=== PATIENT | male | born 1960 | race Caucasian/White ===

== ENCOUNTER 2017-11-01 16:11 | Emergency (ER) | payer SELFPAY ==
[2017-11-01] MEDS ORDERED: Piperacillin/Tazobac ADVAN(*) 3.375 GM in NS 0.9% 100 ML* 100 ML IVPB ONE (16:40)
[2017-11-01] MEDS: NS 0.9% 1000 ML*IV.FLUID IV ONE ×3 (16:55→18:18)
[2017-11-01] MEDS ORDERED: Vancomycin(*) 1,000 MG - ED ONCE IVPB ONE ×2 (17:00)
[2017-11-01] MEDS ORDERED: Vancomycin(*) 1,000 MG VIAL IVPB SCH (17:00)
[2017-11-01 17:14] LABS: Comments Flag Yes; Hematocrit 27 % (42-52); Hemoglobin 8.9 g/dl (14.0-18.0); Mean Corpuscular HGB Conc 33 g/dl (31-36); Mean Corpuscular Hemoglobin 33 pg (27-31); Mean Corpuscular Volume 102 fL (80-94); Mean Platelet Volume 8 um3 (7.4-10.4); Red Blood Count 2.69 10^6/ul (4.0-5.4); Red Cell Distribution Width 15 % (10.5-15); White Blood Count 16.3 10^3/ul (3.5-10.8)
[2017-11-01 17:15] LABS: Add Diff/Slide Review? Slide Review Added; Albumin 1.9 g/dL (3.2-5.2); BUN/Creatinine Ratio 22.2 (8-20); C Reactive Protein 91.17 mg/L (< 5.00); Calcium 8.2 mg/dL (8.6-10.3); EGFR Non-African American 21.7 (>60); Globulin 4.1 g/dL (2-4); Total Bilirubin 2.5 mg/dL (0.2-1.0)
--- NOTE | 2017-11-01 17:18 | RAD ---
Indication: Shortness of breath. 2 views of the chest are reviewed. No mediastinal shift is noted. Heart is of normal size and configuration. Lung reeves are clear. When compared to previous exam of December 28, 2004 no significant change is noted. IMPRESSION: NO ACTIVE CARDIOPULMONARY DISEASE IS NOTED.
[2017-11-01 17:25] LABS: Potassium 5.2 mmol/L (3.5-5.0); Troponin I 0.05 ng/mL (<0.04)
[2017-11-01] MEDS ORDERED: Calcium Gluconate INJ* 1 GM in NS 0.9% 100 ML* 100 ML IVPB ONE (17:33)
[2017-11-01] MEDS ORDERED: Insulin REGULAR(*) 1 UNITS UNIT IV PUSH ONE (17:33)
[2017-11-01] MEDS ORDERED: Dextrose 50% Syringe 50 ML* 25 GM/50 ML SYRINGE IV PUSH ONE (17:33)
[2017-11-01] MEDS ORDERED: NS 0.9% 100 ML* 100 ML ONE (17:52)
[2017-11-01 17:59] LABS: Eosinophils % 1 % (0-6); Immature Granulocytes 49 % (0-9); Metamyelocytes % 4 % (0-2); Neutrophil % 34 % (38-83)
[2017-11-01 18:00] LABS: Add Path Review? YES; Macrocytosis 1+; Polychromasia 1+; Toxic Granulation 2+
[2017-11-01] MEDS ORDERED: Midazolam* 1 MG/ML 10 ML VIAL (10 MG) ONE (18:02)
[2017-11-01] MEDS ORDERED: Succinylcholine* 20 MG/ML 10 ML VIAL ONE (18:02)
[2017-11-01 18:19] LABS: PCO2 Arterial 26 mmHg (35-45)
[2017-11-01] MEDS ORDERED: Sodium Bicarbonate 8.4%* 50 ML SYRINGE IV ONE ×2 (18:31→19:17)
--- NOTE | 2017-11-01 18:32 | RAD ---
Indication: Right leg swelling and devascularization. CT of the right lower extremity was obtained without IV contrast. There is subcutaneous edema noted in the lateral aspect of the right hip. The subcutaneous edema is in the dependent portion with skin thickening. There is fluid extending up to the fascia. No evidence of air is noted. No intramuscular fluid is noted. The intramuscular layers are intact. No drainable fluid collections are noted. No gross thickening is noted. IMPRESSION: There is absence of air in the fascial layer however this does not exclude necrotizing fasciitis. There is diffuse subcutaneous edema and fluid without evidence of focal fluid collections. These findings are nonspecific.
[2017-11-01] MEDS ORDERED: Clindamycin 900 MG IVPREMIX(* 900 MG/50 ML SDV IV ONE (18:36)
[2017-11-01] MEDS ORDERED: Norepinephrine 16MCG/ML IVPRE* 4,000 MCG/250 ML BAG IV ONE ×2 (18:40→20:38)
--- NOTE | 2017-11-01 18:45 | RAD ---
Indication: Left lower extremity pain and swelling. CT of the left lower extremity was performed in the axial plane. Sagittal and coronal reconstructed images were obtained. Diffuse circumferential subcutaneous edema noted throughout the left lower extremity. No evidence of fascial air is noted however. No evidence of abnormal fluid collections are noted. No evidence of infiltration of fat is noted in the intramuscular leg numbness. IMPRESSION: Nonspecific subcutaneous edema throughout the lower extremity most prominent in the dependent portions.
[2017-11-01 18:50] LABS: Erythrocyte Sed Rate 64 mm/Hr (0-20)
[2017-11-01] MEDS ORDERED: Hydrocortisone INJ* 100 MG VIAL IV ONE (19:03)
[2017-11-01 19:04] VITALS: BP 111/57
[2017-11-01 19:04] LABS: Magnesium 1.9 mg/dL (1.9-2.7)
[2017-11-01] MEDS ORDERED: Hydrocortisone INJ* 100 MG VIAL ONE (19:06)
[2017-11-01] MEDS: NS 0.9% 1000 ML* 1,000 ML IV ONE ×2 (19:18→19:19)
--- NOTE | 2017-11-01 19:19 | RAD ---
Indication: Respiratory failure. Single frontal view of the chest performed at 1856 hours was reviewed. Comparison is made with previous exam dated earlier the same day. Cardiomegaly is noted. Mild vascular congestion is noted. ET tube is just above the joi. No alveolar consolidation is noted. IMPRESSION: ET TUBE IN APPROPRIATE LOCATION.
[2017-11-01] MEDS ORDERED: Succinylcholine* 20 MG/ML 10 ML VIAL IV ONE (19:25)
[2017-11-01] MEDS ORDERED: DOPamine 200 MG/250 ML IVPREM* 200 MG/250 ML ML IV ONE (19:31)
[2017-11-01] MEDS ORDERED: Midazolam* 1 MG/ML 10 ML VIAL (10 MG) IV ONE (19:40)
[2017-11-01] MEDS ORDERED: Etomidate* 2 MG/ML 10 ML VIAL IV ONE (19:43)
--- NOTE | 2017-11-01 19:57 | ED ---
Chris Sauceda Angela, scribed for Herman Moncada MD on 11/01/17 at 1727 . Sepsis HPI - HPI Summary HPI Summary: This pt is a 56 y/o male presenting to [facility] via EMS c/o bilateral leg wound weeping x2 weeks. Pt reports he went to [address] [place] [address] Urgent Care for SOB and low back pain. EMS was called for sores on bilateral legs. Pt additionally c/o bilateral leg pain for weeks. He states he was not able to come to the ED before as he was busy. 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 Pt notes he is not taking any medications. He states he sees a PCP every couple of years. Pt denies tobacco, drug, and alcohol use. - History of Current Complaint Chief Complaint: EDShortnessOfBreath Time Seen by Provider: 11/01/17 16:18 Stated Complaint: SOB Hx Obtained From: Patient Onset/Duration: Started Weeks Ago Timing: Constant, Lasting Weeks Pain Intensity: 4 Pain Scale Used: 0-10 Numeric Associated Signs & Symptoms: SOB, Other - low back pain, LE weeping sores - Allergy/Home Medications Allergies/Adverse Reactions: Allergies Allergy/AdvReac Type Severity Reaction Status Date / Time No Known Allergies Allergy Verified 11/01/17 16:43 PMH/Surg Hx/FS Hx/Imm Hx Endocrine/Hematology History: Denies: Hx Diabetes Cardiovascular History: Denies: Hx Congestive Heart Failure, Hx Hypertension Infectious Disease History: No Infectious Disease History: Denies: Traveled Outside the [place] in Last 30 Days - Family History Known Family History: Positive: Unknown - pt is a critical pt - Social History Alcohol Use: None Substance Use Type: Reports: None Smoking Status (MU): Never Smoked Tobacco Review of Systems Negative: Fever, Chills Eyes: Negative ENT: Negative Positive: Shortness Of Breath Musculoskeletal: Other - low back pain Skin: Other - sore on bilateral legs, weeping from bilateral legs. Neurological: Negative All Other Systems Reviewed And Are Negative: Yes Physical Exam - Summary Physical Exam Summary: VITAL SIGNS: Reviewed. GENERAL: Patient is a well-developed male. Pt is a little jaundice. HEAD AND FACE: No signs of trauma. No ecchymosis, hematomas or skull depressions. No sinus tenderness. EYES: PERRLA, EOMI x 2, No injected conjunctiva, no nystagmus. EARS: Hearing grossly intact. Ear canals and tympanic membranes are within normal limits. MOUTH: Oropharynx within normal limits. NECK: Supple, trachea is midline, no adenopathy, no JVD, no carotid bruit, no c- spine tenderness, neck with full ROM. CHEST: Symmetric, no tenderness at palpation LUNGS: Clear to auscultation bilaterally. No wheezing or crackles. CVS: Regular rate and rhythm, S1 and S2 present, no murmurs or gallops appreciated. ABDOMEN: Soft, non-tender. No signs of distention. No rebound no guarding, and no masses palpated. Bowel sounds are normal. EXTREMITIES: FROM in all major joints, no cyanosis or clubbing. Pt has lower extremity edema bilaterally. There is a necrotic wound in the right calf. There are faint pulses of bilateral lower extremities. Foul odor probably secondary to necrosis. NEURO: Alert and oriented x 3. No acute neurological deficits. Speech is normal and follows commands. SKIN: Dry and warm. Desquamation of the skin on bilateral lower extremities. Triage Information Reviewed: Yes Vital Signs On Initial Exam: Initial Vitals Temp Pulse Resp BP Pulse Ox 95.7 F 73 16 112/49 96 11/01/17 16:15 11/01/17 16:15 11/01/17 16:15 11/01/17 16:15 11/01/17 16:15 Vital Signs Reviewed: Yes Procedures - Procedure Summary Procedure Summary: Procedure - Endotracheal Intubation Permit was implied secondary to emergent situation. An LMA and bougie were placed within arm's reach. A Glidescope blade ~was inserted into the oropharynx at which time the vocal cords were visualized. A 7.5 Iraqi endotracheal tube was inserted and visualized going through the vocal cords. The stylette was removed. Colorimetric change was visualized on the CO2 meter. Breath sounds were heard in both lung reeves equally. The endotracheal tube was placed at 23 cm, measured at the teeth. Portable chest x-ray ordered for confirmation of tube level. Post intubation sedation ordered. Intubation was made at the first attempt. No complications were encountered. Diagnostics - Vital Signs Vital Signs Temp Pulse Resp BP Pulse Ox 11/01/17 16:15 95.7 F 73 16 112/49 96 - Laboratory Lab Results: Lab Results 11/01/17 11/01/17 11/01/17 Range/Units 16:44 16:44 16:44 WBC 16.3 H (3.5-10.8) 10^3/ul RBC 2.69 L (4.0-5.4) 10^6/ul Hgb 8.9 L (14.0-18.0) g/dl Hct 27 L (42-52) % MCV 102 H (80-94) fL MCH 33 H (27-31) pg MCHC 33 (31-36) g/dl RDW 15 (10.5-15) % Plt Count 175 (150-450) 10^3/ul MPV 8 (7.4-10.4) um3 Immature Gran % (Auto) 49 H (0-9) % Neut % (Auto) 89.7 H (38-83) % Lymph % (Auto) 7.8 L (25-47) % Island % (Auto) 0.5 L (1-9) % Eos % (Auto) 1.5 (0-6) % Baso % (Auto) 0.5 (0-2) % Absolute Neuts (auto) 14.6 H (1.5-7.7) 10^3/ul Absolute Lymphs (auto) 1.3 (1.0-4.8) 10^3/ul Absolute Monos (auto) 0.1 (0-0.8) 10^3/ul Absolute Eos (auto) 0.2 (0-0.6) 10^3/ul Absolute Basos (auto) 0.1 (0-0.2) 10^3/ul Absolute Nucleated RBC 0.09 10^3/ul Neutrophils % 34 L (38-83) % Band Neutrophils % 45 H (0-8) % Lymphocytes % 12 L (25-47) % Monocytes % 3 (0-13) % Eosinophils % 1 (0-6) % Basophils % 1 (0-2) % Metamyelocytes % 4 H (0-2) % Nucleated RBC % 0.6 Toxic Granulation 2+ Normal RBC Morphology Not Reportable Polychromasia 1+ Macrocytosis 1+ ESR 64 H (0-20) mm/Hr Hem Pathologist Commnt Pending INR (Anticoag Therapy) 2.25 H (0.77-1.02) APTT 43.1 H (26.0-36.3) seconds Fibrinogen 195 (110.8-404.3) mg/dL ABG pH (7.35-7.45) ABG pCO2 (35-45) mmHg ABG pO2 (80-100) mmHg ABG HCO3 (19-31) mmol/L ABG O2 Saturation (95-98) % ABG Base Excess (-2.0-2.0) Sodium 122 L (133-145) mmol/L Potassium 5.2 H (3.5-5.0) mmol/L Chloride 95 L (101-111) mmol/L Carbon Dioxide 8 L* (22-32) mmol/L Anion Gap 19 H (2-11) mmol/L BUN 67 H (6-24) mg/dL Creatinine 3.02 H (0.67-1.17) mg/dL Est GFR ( Amer) 28.0 (>60) Est GFR (Non-Af Amer) 21.7 (>60) BUN/Creatinine Ratio 22.2 H (8-20) Glucose 56 L (70-100) mg/dL Lactic Acid (0.5-2.0) mmol/L Calcium 8.2 L (8.6-10.3) mg/dL Magnesium 1.9 (1.9-2.7) mg/dL Total Bilirubin 2.50 H (0.2-1.0) mg/dL AST 210 H (13-39) U/L ALT 63 H (7-52) U/L Alkaline Phosphatase 224 H (34-104) U/L Total Creatine Kinase 356 H (10-223) U/L Troponin I 0.05 H* (<0.04) ng/mL C-Reactive Protein 91.17 H (< 5.00) mg/L B-Natriuretic Peptide ( - 100) pg/mL Total Protein 6.0 L (6.4-8.9) g/dL Albumin 1.9 L (3.2-5.2) g/dL Globulin 4.1 H (2-4) g/dL Albumin/Globulin Ratio 0.5 L (1-3) Procalcitonin (<0.6) ng/mL Influenza A (Rapid) (Negative) Influenza B (Rapid) (Negative) 11/01/17 11/01/17 11/01/17 Range/Units 16:44 16:44 16:44 WBC (3.5-10.8) 10^3/ul RBC (4.0-5.4) 10^6/ul Hgb (14.0-18.0) g/dl Hct (42-52) % MCV (80-94) fL MCH (27-31) pg MCHC (31-36) g/dl RDW (10.5-15) % Plt Count (150-450) 10^3/ul MPV (7.4-10.4) um3 Immature Gran % (Auto) (0-9) % Neut % (Auto) (38-83) % Lymph % (Auto) (25-47) % Island % (Auto) (1-9) % Eos % (Auto) (0-6) % Baso % (Auto) (0-2) % Absolute Neuts (auto) (1.5-7.7) 10^3/ul Absolute Lymphs (auto) (1.0-4.8) 10^3/ul Absolute Monos (auto) (0-0.8) 10^3/ul Absolute Eos (auto) (0-0.6) 10^3/ul Absolute Basos (auto) (0-0.2) 10^3/ul Absolute Nucleated RBC 10^3/ul Neutrophils % (38-83) % Band Neutrophils % (0-8) % Lymphocytes % (25-47) % Monocytes % (0-13) % Eosinophils % (0-6) % Basophils % (0-2) % Metamyelocytes % (0-2) % Nucleated RBC % Toxic Granulation Normal RBC Morphology Polychromasia Macrocytosis ESR (0-20) mm/Hr Hem Pathologist Commnt INR (Anticoag Therapy) (0.77-1.02) APTT (26.0-36.3) seconds Fibrinogen (110.8-404.3) mg/dL ABG pH (7.35-7.45) ABG pCO2 (35-45) mmHg ABG pO2 (80-100) mmHg ABG HCO3 (19-31) mmol/L ABG O2 Saturation (95-98) % ABG Base Excess (-2.0-2.0) Sodium (133-145) mmol/L Potassium (3.5-5.0) mmol/L Chloride (101-111) mmol/L Carbon Dioxide (22-32) mmol/L Anion Gap (2-11) mmol/L BUN (6-24) mg/dL Creatinine (0.67-1.17) mg/dL Est GFR ( Amer) (>60) Est GFR (Non-Af Amer) (>60) BUN/Creatinine Ratio (8-20) Glucose (70-100) mg/dL Lactic Acid 9.9 H* (0.5-2.0) mmol/L Calcium (8.6-10.3) mg/dL Magnesium (1.9-2.7) mg/dL Total Bilirubin (0.2-1.0) mg/dL AST (13-39) U/L ALT (7-52) U/L Alkaline Phosphatase (34-104) U/L Total Creatine Kinase (10-223) U/L Troponin I (<0.04) ng/mL C-Reactive Protein (< 5.00) mg/L B-Natriuretic Peptide 381 H ( - 100) pg/mL Total Protein (6.4-8.9) g/dL Albumin (3.2-5.2) g/dL Globulin (2-4) g/dL Albumin/Globulin Ratio (1-3) Procalcitonin 3.0 H (<0.6) ng/mL Influenza A (Rapid) (Negative) Influenza B (Rapid) (Negative) 11/01/17 11/01/17 Range/Units 17:32 18:05 WBC (3.5-10.8) 10^3/ul RBC (4.0-5.4) 10^6/ul Hgb (14.0-18.0) g/dl Hct (42-52) % MCV (80-94) fL MCH (27-31) pg MCHC (31-36) g/dl RDW (10.5-15) % Plt Count (150-450) 10^3/ul MPV (7.4-10.4) um3 Immature Gran % (Auto) (0-9) % Neut % (Auto) (38-83) % Lymph % (Auto) (25-47) % Island % (Auto) (1-9) % Eos % (Auto) (0-6) % Baso % (Auto) (0-2) % Absolute Neuts (auto) (1.5-7.7) 10^3/ul Absolute Lymphs (auto) (1.0-4.8) 10^3/ul Absolute Monos (auto) (0-0.8) 10^3/ul Absolute Eos (auto) (0-0.6) 10^3/ul Absolute Basos (auto) (0-0.2) 10^3/ul Absolute Nucleated RBC 10^3/ul Neutrophils % (38-83) % Band Neutrophils % (0-8) % Lymphocytes % (25-47) % Monocytes % (0-13) % Eosinophils % (0-6) % Basophils % (0-2) % Metamyelocytes % (0-2) % Nucleated RBC % Toxic Granulation Normal RBC Morphology Polychromasia Macrocytosis ESR (0-20) mm/Hr Hem Pathologist Commnt INR (Anticoag Therapy) (0.77-1.02) APTT (26.0-36.3) seconds Fibrinogen (110.8-404.3) mg/dL ABG pH 7.01 L* (7.35-7.45) ABG pCO2 26 L (35-45) mmHg ABG pO2 103 H (80-100) mmHg ABG HCO3 7.1 L* (19-31) mmol/L ABG O2 Saturation 97.4 (95-98) % ABG Base Excess -22.8 L (-2.0-2.0) Sodium (133-145) mmol/L Potassium (3.5-5.0) mmol/L Chloride (101-111) mmol/L Carbon Dioxide (22-32) mmol/L Anion Gap (2-11) mmol/L BUN (6-24) mg/dL Creatinine (0.67-1.17) mg/dL Est GFR ( Amer) (>60) Est GFR (Non-Af Amer) (>60) BUN/Creatinine Ratio (8-20) Glucose (70-100) mg/dL Lactic Acid (0.5-2.0) mmol/L Calcium (8.6-10.3) mg/dL Magnesium (1.9-2.7) mg/dL Total Bilirubin (0.2-1.0) mg/dL AST (13-39) U/L ALT (7-52) U/L Alkaline Phosphatase (34-104) U/L Total Creatine Kinase (10-223) U/L Troponin I (<0.04) ng/mL C-Reactive Protein (< 5.00) mg/L B-Natriuretic Peptide ( - 100) pg/mL Total Protein (6.4-8.9) g/dL Albumin (3.2-5.2) g/dL Globulin (2-4) g/dL Albumin/Globulin Ratio (1-3) Procalcitonin (<0.6) ng/mL Influenza A (Rapid) Negative (Negative) Influenza B (Rapid) Negative (Negative) Result Diagrams: 11/01/17 16:44 11/01/17 16:44 Lab Statement: Any lab studies that have been ordered have been reviewed, and results considered in the medical decision making process. - Radiology Chest XR Xray Interpretation: No Acute Changes - IMPRESSION: No active cardiopulmonary disease is noted. ED physician has reviewed this radiology report and agrees. Radiology Interpretation Completed By: Radiologist Chest XR 2 Xray Interpretation: Positive (See Comments) - IMPRESSION: ET tube in appropriate location. ED physician has reviewed this radiology report and agrees. Radiology Interpretation Completed By: Radiologist - CT CT of LLE CT Interpretation: Positive (See Comments) - IMPRESSION: Nonspecific subcutaneous edema throughout the lower extremity most prominent in the dependent portions. ED physician has reviewed this radiology report and agrees. CT Interpretation Completed By: Radiologist CT of RLE CT Interpretation: Positive (See Comments) - IMPRESSION: There is abscence of air in the fascial layer however this does not exclude necrotizing fasciitis. There is diffuse subcutaneous edema and fluid without evidence of focal fluid collections. These findings are nonspecific. ED physician has reviewed this radiology report and agrees. CT Interpretation Completed By: Radiologist - EKG 1702 Cardiac Rate: NL EKG Rhythm: Sinus Rhythm - at 71 bpm EKG Interpretation: No ST elevation. Q waves in II, III, and aVF. Course/Dx - Course Assessment/Plan: This pt is a 56 y/o male presenting to [facility] via EMS c/o bilateral leg wound weeping x2 weeks. Pt reports he went to [address] [place] [address] Urgent Care for SOB and low back pain. EMS was called for sores on bilateral legs. Pt additionally c/o bilateral leg pain for weeks. He states he was not able to come to the ED before as he was busy. 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 Pt notes he is not taking any medications. He states he sees a PCP every couple of years. Pt denies tobacco, drug, and alcohol use. Initially the pt has a necrotic smell in both legs and a wound on the right leg. Pt is also hypotensive, hypothermic, and tachycardic, therefore I believe the pt is septic. Pt was placed on a monitor. Wound cultures were sent. Pt was started on Vancomycin. Test results shows WBC of 16.3, with hemoglobin of 8.9, hematocrit of 27, INR of 2.25, APTT of 43.1, even though the pt does not take any blood thinners. Sodium is 122, Potassium is 5.2, carbon dioxide is 8, anion gap is 19 , BUN is 67, creatinine is 3.02, glucose is 56, lactic acid is 9.9, LFTs are increased, troponin is 0.05, CRP is 91.1, BNP is 381, total protein is 6. I believe the pt has a multi-organ failure, therefore the pt was given calcium gluconate, dextrose for hyperkalemia. The pt became hypotensive and therefore I decided to intubate the pt. Please see intubation note. The pt was given 4 amps of bicarb and we are going to start the second pressor. We also gave him albumin since he has hypoalbuminemia in effort to keep his blood pressure stable. At this time I discussed the pts case with the [facility] in [place] and Dr. Buck, who accepted the pt for transfer. The pt is critically ill and he may need an amputation. Since the pt is septic and hypotensive, I believe the pt has necrotizing fasciitis. I discussed the case with Dr. Mondragon, and reports he is unable to perform this type of surgery, therefore he needs a vascular surgeon. At this time, even though the pt is not stable, I believe the only chance he has is to have an amputation, which Dr. Buck agrees to. Pt will be transferred to [facility] in [place] via helicopter. The pt is currently unstable with poor prognosis. - Differential Dx/Clinical Impression Differential Diagnosis/HQI/PQRI: Hypothermia, Medication Reaction, Metabolic Disorder, Sepsis Provider Diagnosis: Necrotizing fasciitis, Hypotension, Sepsis, Multi-organ failure with liver failure, Sepsis with multi-organ dysfunction - Provider Notifications Discussed Care Of Patient With: Dr. Cannon Time Discussed With Above Provider: 17:22 Instructed by Provider To: Other - I discussed the pt's case with Dr. Cannon, who recommends to order a CT without contrast. If it shows gas, we will transfer the pt. If not, the pt will be admitted. [19:30] I discussed the case with the [facility] in [place] and Dr. Buck, who accepts the pt for transfer. - Critical Care Time Critical Care Time: 75-104 min - 4 hours. Discharge - Discharge Plan Condition: Guarded Disposition: TRANS HIGHER LVL OF CARE FAC Discharge Disposition Comment: [facility] Referrals: No Primary Care Phys,NOPCP [Primary Care Provider] - The documentation as recorded by the Chris alston Angela accurately reflects the service I personally performed and the decisions made by me, Herman Moncada MD.
[2017-11-01] MEDS ORDERED: Albumin Human 25%* 50 ML in PREMIX* 0 ML IV SCH (20:00)
[2017-11-01] MEDS ORDERED: Norepinephrine 16MCG/ML IVPRE* 4,000 MCG/250 ML BAG IV SCH ×2 (20:00→22:00)
[2017-11-01] MEDS ORDERED: Albumin Human 5%* 250 ML in PREMIX* 0 ML IV SCH (20:00)
--- NOTE | 2017-11-04 20:48 | ED ---
Progress - Progress Note Progress Note: Pt's prelim blood cx reveals strep dysgagactiae - transferred. Will await final results and fax. Course/Dx - Diagnoses Provider Diagnoses: Necrotizing fasciitis, Hypotension, Sepsis, Multi-organ failure with liver failure, Sepsis with multi-organ dysfunction - Provider Notifications Time Discussed With Above Provider: 17:22 Instructed by Provider To: Other - I discussed the pt's case with Dr. Cannon, who recommends to order a CT without contrast. If it shows gas, we will transfer the pt. If not, the pt will be admitted. [19:30] I discussed the case with the Transfer [facility] in [place] and Dr. Buck, who accepts the pt for transfer. - Critical Care Time Critical Care Time: 75-104 min - 4 hours.
== END 2017-11-01 21:05 | disposition short-term general hospital (02) ==
LOC: ED 16:11
DX: M72.6 Necrotizing fasciitis (principal); R65.20 Severe sepsis without septic shock; R06.02 Shortness of breath; I95.9 Hypotension, unspecified; M54.5 Low back pain; K72.90 Hepatic failure, unspecified without coma
CPT/HCPCS: 36415; 36600; 71010; 71020; 80053; 82550; 82803; 83605; 83735; 83880; 84145; 84484; 85025; 85060; 85384; 85610; 85652; 85730; 86140; 87040; 87077; 87150; 87186; 87205; 87502; 93005; 94002; 99285; J0330; J0610; J1720; J2250; J2543; J3370; P9045